=== PATIENT | male | born 1980 | race Caucasian/White ===

== ENCOUNTER 2020-09-11 10:14 | Emergency (ER) | payer OTHER ==
[~2020-09-11] VITALS: Ht 182.9 cm; Wt 90.7 kg
[~2020-09-11 10:14] MED LIST: BACPOLTO30 TP; HYDACE5 PO; IBUP800 PO; OXYACE5T PO; SILSUL1TC TOP; SUMA25 PO
[2020-09-11 10:33] LABS: BASOPHILS ABSOLUTE AUTO 0.04 K/mm3 (0.00-0.23); BASOPHILS PERCENT AUTO 0 % (0-2); EOSINOPHILS ABSOLUTE AUTO 0.11 K/mm3 (0.00-0.68); EOSINOPHILS PERCENT AUTO 1 % (0-6); Hematocrit 46.4 % (37.0-53.0); Hemoglobin 15.6 g/dL (13.5-17.5); IMMATURE GRAN ABSOLUTE AUTO 0.08 K/mm3 (0.00-0.10); IMMATURE GRAN PERCENT AUTO 1 % (0-1); LYMPHOCYTES ABSOLUTE AUTO 6.06 K/mm3 (0.84-5.20); LYMPHOCYTES PERCENT AUTO 52 % (21-46); MONOCYTES ABSOLUTE AUTO 0.81 K/mm3 (0.16-1.47); MONOCYTES PERCENT AUTO 7 % (4-13); Mean Corpuscular HGB 30.9 pg (26.0-34.0); Mean Corpuscular HGB Conc 33.6 g/dL (31.5-36.5); Mean Corpuscular Volume 92 fL (80-100); Mean Platelet Volume 9.9 fL (9.1-12.4); NEUTROPHILS ABSOLUTE AUTO 4.52 K/mm3 (1.96-9.15); NEUTROPHILS PERCENT AUTO 39 % (41-73); Platelet Count 311 K/mm3 (150-400); RDW Coefficient Variation 11.9 % (11.7-14.2); RDW Standard Deviation 40.3 fL (35.1-46.3); Red Blood Cell Count 5.05 M/mm3 (4.30-5.90); White Blood Cell Count 11.62 K/mm3 (4.00-11.30)
[2020-09-11 10:48] LABS: International Normalized Ratio 0.97; Prothrombin Time Results 10.4 Sec (9.7-11.5)
[2020-09-11 10:49] LABS: Alanine Aminotransfer (ALT/SGP 59 U/L (12-78); Albumin/Globulin Ratio 1.1 (0.8-1.8); Alk Phos 66 U/L (50-136); Anion Gap 7 mmol/L (6-16); Aspartate Aminotrans (AST/SGOT 44 U/L (12-37); Bilirubin, Total 0.5 mg/dL (0.1-1.0); Blood Urea Nitrogen 20 mg/dL (8-24); CO2, Blood 27 mmol/L (21-32); Calcium, Blood 9.2 mg/dL (8.5-10.1); Chloride, Blood 106 mmol/L (98-108); Globulin, Blood 3.6 g/dL (2.2-4.0); Glomerular Filtration Rate >60 (60-); Glucose, Blood 139 mg/dL (70-99); Potassium, Blood 3.1 mmol/L (3.5-5.5); Sodium, Blood 140 mmol/L (136-145); Total Protein, Blood 7.6 g/dL (6.4-8.2)
--- NOTE | 2020-09-11 12:09 | NUR ---
After I respond to a trauma team activation, patient arrives in ER. I witness patient's condition and then begin escorting family members to the ER consult rm. I provide information as it is available and I provide prayer several times as more family members arrive. I bring family to ER 26 once given permission to bring family back. Patient and family have a strong Taoism nafisa and so I also pray with the patient. Patient begins to have some complications and so I move family back to the consult rm while patient is intubated and keep them informed as new information is available. I bring them back to ER 26 once the REACH team arrives and gives clearance for family to be in the rm. I escort family out to the helicopter and encourage family to to tell patient what is what is on their heart. Patient's family then head up to [facility] via car.
== END 2020-09-11 12:00 | disposition short-term general hospital (02) ==
LOC: ER 10:14
PROVIDERS: Emergency Medicine
DX: S06.5X9A Traumatic subdural hemorrhage with loss of consciousness of unspecified duration, initial encounter (principal); Z91.013 Allergy to seafood; Z88.0 Allergy status to penicillin; Z79.899 Other long term (current) drug therapy; W17.89XA Other fall from one level to another, initial encounter; Y92.89 Other specified places as the place of occurrence of the external cause; Y99.0 Civilian activity done for income or pay
CPT/HCPCS: 31500; 31720; 51702; 70450; 71045; 71260; 72125; 72170; 74177; 80053; 85025; 85610; 85730; 93005; 93010; 96365-59; 96368; 96375-59; 99291-25; J0330; J0461; J1953; J2060; J2405; J2704; J3010; Q9967

== ENCOUNTER 2024-12-06 07:48 | Day surgery (SDC) | payer MEDICARE, BC ==
[~2024-12-06] VITALS: Ht 185.4 cm; Wt 117.7 kg
[~2024-12-06 07:48] MED LIST changes: +Bupivacaine 0.5% W/EPI 1:200000 SDV 30 ML Vial ONE
[2024-12-06] MEDS ORDERED: FISH OIL 1,0001 EA10 (08:36)
[2024-12-06] MEDS ORDERED: EZETIMIBE10 M6 (08:36)
[2024-12-06] MEDS ORDERED: Ketorolac Tromethamine 30mg Vial ONE (08:36)
[2024-12-06] MEDS ORDERED: propofoL 20 ML IV ONE (08:36)
[2024-12-06] MEDS ORDERED: FentaNYL Citrate 50 MCG/ML 2 ML Injection ONE ×2 (08:36→10:14)
[2024-12-06] MEDS ORDERED: NEXLETOL180 MG (08:36)
[2024-12-06] MEDS ORDERED: Ondansetron HCl 2 MG / ML 2ML Vial ONE (08:36)
[2024-12-06] MEDS ORDERED: Dexamethasone Sod Phos 10 MG/ML 1ML VIAL ONE (08:36)
[2024-12-06] MEDS ORDERED: LEQVIO284 MG/1.5 (08:38)
[2024-12-06] MEDS ORDERED: TURMERIC500 M2 (08:40)
[2024-12-06] MEDS ORDERED: VITAMIN D5000 UNIT (08:40)
[2024-12-06] MEDS ORDERED: C COMPLEX1000 M1 (08:41)
[2024-12-06] MEDS ORDERED: NAC600 MG (08:41)
[2024-12-06] MEDS ORDERED: METHYL FOLATE (08:43)
[2024-12-06] MEDS ORDERED: ZYRTEC10 M2 (08:44)
[2024-12-06] MEDS ORDERED: VITAMIN K240 MCG (08:44)
[2024-12-06] MEDS ORDERED: MAGNESIUM GLU27.5 M1 (08:44)
[2024-12-06] MEDS ORDERED: Lactated Ringer's 1,000 ML IV ONE ×2 (08:45→10:30)
[2024-12-06] MEDS ORDERED: [UNRECOGNIZED DRUG - OTHER] (08:45)
[2024-12-06] MEDS ORDERED: [UNRECOGNIZED DRUG - OTHER] (08:46)
[2024-12-06] MEDS ORDERED: CeFAZolin Sodium 2,000 MG VIAL ONE (08:47)
--- NOTE | 2024-12-06 09:06 | NUR ---
12/06/24 0906 Althea Sierra PT. WITH PAIN ON LEFT FOOT RATING "3" UP ELEVATED & "8" WITH MOVEMENT.
--- NOTE | 2024-12-06 10:08 | NUR ---
12/06/24 1008 MAI CORCORAN ICE PLACED BEHIND KNEE, PT ON GURNEY. PAIN 5/10. PLAN TO GIVE PO PAIN MED AFTER SNACK AND UP TO CHAIR
[2024-12-06] MEDS ORDERED: TraMADol HCl 50 MG Tab ONE (10:46)
[2024-12-06 10:58] VITALS: BP 139/87
== END 2024-12-06 11:14 | disposition home or self-care (01) ==
LOC: ORSCSDS 07:48
PROVIDERS: Podiatrist Foot & Ankle Surgery
PROC: 0QSP04Z Reposition Left Metatarsal with Internal Fixation Device, Open Approach (ICD-10-PCS; principal; 2024-12-06 09:00)
DX: S92.355A Nondisplaced fracture of fifth metatarsal bone, left foot, initial encounter for closed fracture (principal); Z86.73 Personal history of transient ischemic attack (TIA), and cerebral infarction without residual deficits; E66.9 Obesity, unspecified; Z68.34 Body mass index [BMI] 34.0-34.9, adult
CPT/HCPCS: A9270; C1713; J0690; J1100; J1885; J2405; J2704; J3010; J7120